=== PATIENT | female | born 1970 | race Two or more races ===

== ENCOUNTER 2018-03-02 11:32 | Inpatient (IN) | payer MEDICAID ==
[~2018-03-02] VITALS: Ht 157.5 cm; Wt 51.3 kg
[~2018-03-02 11:32] MED LIST: CIPRO500 MG PO; NKM; NORCO 5-325 TA1 EACH ORAL
[2018-03-02] MEDS ORDERED: POLYETHYLENE GL17 GM ORAL (11:53)
[2018-03-02 12:00] VITALS: BP 106/57
[2018-03-02] MEDS ORDERED: Metoclopramide 10mg/2ml Inj IVP ONE (12:15)
[2018-03-02] MEDS ORDERED: DiphenhydrAMINE 50mg/ml Inj IVP ONE (12:15)
[2018-03-02] MEDS ORDERED: Isovue-300 100ml vial INJ PRN (12:15)
[2018-03-02 12:46] LABS: BASOPHILS % (AUTO) 1.1 % (0.0-2.0); HEMATOCRIT 41.5 % (37.0-47.0); HEMOGLOBIN 14.4 G/DL (12.0-16.0); LYMPHOCYTES % (AUTO) 7.8 % (20.0-45.0); MEAN CORPUSCULAR VOLUME 95 FL (80-99); MONOCYTES % (AUTO) 10.3 % (1.0-10.0); NEUTROPHILS % (AUTO) 80.7 % (45.0-75.0); PLATELET COUNT 242 K/UL (150-450); RED BLOOD COUNT 4.36 M/UL (4.20-5.40); RED CELL DISTRIBUTION WIDTH 10.6 % (11.6-14.8); WHITE BLOOD COUNT 16.6 K/UL (4.8-10.8)
[2018-03-02 12:55] LABS: INR 1.1 (0.9-1.1)
[2018-03-02 12:57] LABS: ANION GAP 10 mmol/L (5-15); BLOOD UREA NITROGEN 7 mg/dL (7-18); CARBON DIOXIDE 27 MMOL/L (21-32); CHLORIDE 89 MMOL/L (98-107); CREATININE 0.8 MG/DL (0.55-1.30); POTASSIUM 3.1 MMOL/L (3.5-5.1); SODIUM 126 MMOL/L (136-145)
[2018-03-02 13:01] LABS: ALANINE AMINOTRANSFERASE 107 U/L (12-78); ALBUMIN/GLOBULIN RATIO 0.5 (1.0-2.7); ALKALINE PHOSPHATASE 168 U/L (46-116); ASPARTATE AMINO TRANSFERASE 94 U/L (15-37); BILIRUBIN,TOTAL 0.5 MG/DL (0.2-1.0)
[2018-03-02 13:09] LABS: APPEARANCE,URINE SLIGHTLY CLOUDY; BILIRUBIN, URINE NEGATIVE (NEGATIVE); GLUCOSE, URINE (UA) 3+ (NEGATIVE); KETONES,URINE 1+ (NEGATIVE); LEUKOCYTE ESTERASE ,URINE 3+ (NEGATIVE); NITRITE,URINE NEGATIVE (NEGATIVE); PH,URINE 7 (4.5-8.0); PROTEIN,URINE 2+ (NEGATIVE); UROBILINOGEN,URINE 1 MG/DL (0.0-1.0)
[2018-03-02 13:14] LABS: COLOR,URINE YELLOW
[2018-03-02 13:26] LABS: AMMONIA < 10 umol/L (11-32)
[2018-03-02] MEDS ORDERED: Omnipaque-300 100ml vial INJ ONE (14:04)
--- NOTE | 2018-03-02 14:05 | Diagnostic Imaging Report ---
Indication: Cough Technique: One view of the chest Comparison: none Findings: Lungs and pleural spaces are clear. The heart size is normal. Impression: Negative
--- NOTE | 2018-03-02 14:57 | Diagnostic Imaging Report ---
Clinical Indication: Abdominal pain Technique: Patient given oral contrast. IV administration nonionic contrast. Venous phase spiral acquisition obtained through the abdomen and pelvis. Multiplanar reconstructions were generated. Total dose length product 541.13 mGycm. CTDIvol(s) 11.63 mGy. Dose reduction achieved using automated exposure control Comparison: none Findings: There is a complex left adnexal region mass presumably involving the left ovary, which measures 6.8 x 5 cm. It demonstrates multiple cystic spaces, some which appear to be interconnected others which other discrete. It also contains a 7 mm calcification. Most of this appears to be hyperenhancing and there is no definite torsion of the ovarian vascular pedicle. There is considerable infiltration of the surrounding pelvic fat. The right ovary is unremarkable. The uterus contains an intrauterine device. There is good quality opacification of the GI tract. Contrast is seen throughout the entirety of the small bowel, indicating absence of obstructive pathology. The appendix is normal. It is best appreciated on the coronal reconstructed images. There is wall thickening of the cecum and ascending colon. There is equivocal mild wall thickening of the sigmoid colon, but this is probably just an artifact of under distention. No free or loculated intraperitoneal gas or fluid. No small bowel wall thickening. The distal esophagus, stomach, duodenum are unremarkable. The liver is enlarged and diffusely hypoattenuating. No focal abnormality demonstrated. The gallbladder, bile ducts, pancreas, spleen, adrenals are unremarkable. The right kidney demonstrates a small cortical scar. Left kidney demonstrates one or more subcentimeter low-attenuation lesions, too small to characterize. The bladder is equivocally somewhat thick walled but this is probably an artifact of under distention. The included lung bases demonstrate a 3 mm nodule on the right, image 8 of series 7. The bones demonstrate bilateral L5 spondylolysis, and grade 1-2 L5 on S1 spondylolisthesis. Impression: 6.8 x 5 cm complex left adnexal mass, presumably ovarian in origin. Given the evidence of surrounding inflammatory change, findings suspicious for tubo-ovarian abscess. There is also a calcification which is tooth-like, may indicate a concomitant dermoid. Findings could also represent ovarian neoplasm or, less likely, ovarian torsion. Intrauterine device in place Wall thickening of the cecum and ascending colon, consistent with colitis. There is also questionable wall thickening of the sigmoid, but this is probably just an artifact of under distention Apparent wall thickening of the bladder, most likely an artifact of under distention but cystitis also possible Enlarged fatty liver 3 mm right lung base nodule. No further follow-up necessary if there are no risk factors for lung carcinoma. There are risk factors, then follow-up CT in 6 6-12 months is recommended Bilateral L5 spondylolysis and grade 1-2 L5 on S1 spondylolisthesis Incidental finding left renal subcentimeter low-attenuation lesion, too small to characterize, most likely benign simple cysts. No further follow-up necessary Findings discussed by phone with Dr. Monk in the emergency room at the time of interpretation The CT scanner at [facility] is accredited by the [employer] and the scans are performed using protocols designed to limit radiation exposure to as low as reasonably achievable to attain images of sufficient resolution adequate for diagnostic evaluation.
[2018-03-02] MEDS ORDERED: Cefepime HCl 1 GM in D5W 55 ML IVPB ONE (15:00)
--- NOTE | 2018-03-02 15:08 | Emergency Room Report ---
History of Present Illness General Chief Complaint: Abdominal Pain Source: Patient Present Illness HPI Patient presents with one week of worsening constant left lower quadrant pain. She has a complicated history of cirrhosis, ovarian cysts and was extensively worked up several months ago at [facility] with ultrasounds and CT scans ( ). She's felt feverish. She's also had some vomiting with some bile. She's moved her bowels and had constipation. Last time was last night. The pain is severe and constant and doesn't radiate. Pain rated 9/10. She still does drink alcohol and smoke cigarettes. H/O cirrhosis H/O ovarian cysts post some surgical procedure 15 years ago. No URI sy, cough, chest pain, dizziness, confusion, rashes, joint pain. No cough, dysuria, back pain, headache, confusion, rashes, depression, diabetes , bleeding problems. Allergies: Coded Allergies: No Known Allergies (Unverified , 08/08/14) Patient History Past Medical History: see triage record Past Surgical History: other - ovarian cyst operation Social History: Reports: smoking, alcohol use Social History Narrative with daughter Reviewed Nursing Documentation: PMH: Agreed; PSxH: Agreed Nursing Documentation-PM Past Medical History: No History, Except For Hx Gastrointestinal Problems: Yes - constipation Review of Systems All Other Systems: negative except mentioned in HPI Physical Exam Vital Signs Date Time Temp Pulse Resp B/P (MAP) Pulse Ox O2 Delivery O2 Flow Rate FiO2 03/02/18 11:46 98.1 98 18 92/54 99 Room Air Sp02 EP Interpretation: reviewed, normal General Appearance: well appearing, no apparent distress, GCS 15 Head: normocephalic Eyes: bilateral eye PERRL, bilateral eye EOMI, bilateral eye scleral icterus ENT: moist mucus membranes, other - delong coating tongue Neck: supple Respiratory: lungs clear, normal breath sounds Cardiovascular #1: regular rate, rhythm Cardiovascular #2: 2+ radial (R) Gastrointestinal: soft, no mass, no rebound, guarding, tenderness, other - possible ascites, protruberant Genitourinary: no CVA tenderness Musculoskeletal: back normal, gait/station normal, normal range of motion Neurologic: alert, oriented x3, motor strength/tone normal, DTRs symmetric, sensory intact, cerebellar normal, normal gait, speech normal, other - no asterixis Psychiatric: mood/affect normal Skin: warm/dry, other - sallo Medical Decision Making Diagnostic Impression: Primary Impression: Tubo-ovarian abscess Additional Impressions: Ovarian mass, left Cirrhosis Qualified Codes: K70.30 - Alcoholic cirrhosis of liver without ascites Hyponatremia Elevated LFTs UTI (urinary tract infection) Qualified Codes: N39.0 - Urinary tract infection, site not specified ER Course Patient presents with 1 week of LLQ pain. DDX: diverticulitis, ascites/SBP, UTI , other abdominal pathology. No diarrhea so doubt gastroenteritis. Evaluation with EKG, CXR CT abd/pelvis and labs. Treatment with IV hydration, Reglan and Benadryl for pain. EKG some R strain. Labs with leukocytosis, normal H/H and platelets. CMP with low sodium, elevated LFTs. Normal coags. Pyuria. CT with possible TOA versus ovarian mass. Cefepime and Flagyl begun. Pain improved. Admit med. Will need Senior Housekeeper consultation. Laboratory Tests Test 03/02/18 12:36 03/02/18 12:55 White Blood Count 16.6 K/UL (4.8-10.8) H Red Blood Count 4.36 M/UL (4.20-5.40) Hemoglobin 14.4 G/DL (12.0-16.0) Hematocrit 41.5 % (37.0-47.0) Mean Corpuscular Volume 95 FL (80-99) Mean Corpuscular Hemoglobin 32.9 PG (27.0-31.0) H Mean Corpuscular Hemoglobin Concent 34.6 G/DL (32.0-36.0) Red Cell Distribution Width 10.6 % (11.6-14.8) L Platelet Count 242 K/UL (150-450) Mean Platelet Volume 6.0 FL (6.5-10.1) L Neutrophils (%) (Auto) 80.7 % (45.0-75.0) H Lymphocytes (%) (Auto) 7.8 % (20.0-45.0) L Monocytes (%) (Auto) 10.3 % (1.0-10.0) H Eosinophils (%) (Auto) 0.0 % (0.0-3.0) Basophils (%) (Auto) 1.1 % (0.0-2.0) Prothrombin Time 11.2 SEC (9.30-11.50) Prothrombin Time INR 1.1 (0.9-1.1) PTT 35 SEC (23-33) H Sodium Level 126 MMOL/L (136-145) L Potassium Level 3.1 MMOL/L (3.5-5.1) L Chloride Level 89 MMOL/L (98-107) L Carbon Dioxide Level 27 MMOL/L (21-32) Anion Gap 10 mmol/L (5-15) Blood Urea Nitrogen 7 mg/dL (7-18) Creatinine 0.8 MG/DL (0.55-1.30) Estimate Glomerular Filtration Rate > 60 mL/min (>60) Glucose Level 174 MG/DL (74-106) H Calcium Level 9.0 MG/DL (8.5-10.1) Magnesium Level 1.7 MG/DL (1.8-2.4) L Total Bilirubin 0.5 MG/DL (0.2-1.0) Aspartate Amino Transferase (AST) 94 U/L (15-37) H Alanine Aminotransferase (ALT) 107 U/L (12-78) H Alkaline Phosphatase 168 U/L (46-116) H Ammonia < 10 umol/L (11-32) L Total Protein 8.9 G/DL (6.4-8.2) H Albumin 3.0 G/DL (3.4-5.0) L Globulin 5.9 g/dL Albumin/Globulin Ratio 0.5 (1.0-2.7) L Lipase 75 U/L (73-393) Serum Alcohol < 3 mg/dL Urine Color Yellow Urine Appearance Slightly cloudy Urine pH 7 (4.5-8.0) Urine Specific [place] 1.005 (1.005-1.035) Urine Protein 2+ (NEGATIVE) H Urine Glucose (UA) 3+ (NEGATIVE) H Urine Ketones 1+ (NEGATIVE) H Urine Blood 3+ (NEGATIVE) H Urine Nitrite Negative (NEGATIVE) Urine Bilirubin Negative (NEGATIVE) Urine Urobilinogen 1 MG/DL (0.0-1.0) H Urine Leukocyte Esterase 3+ (NEGATIVE) H Urine RBC 10-15 /HPF (0 - 2) H Urine WBC 20-30 /HPF (0 - 2) H Urine Squamous Epithelial Cells Many /LPF (NONE/OCC) H Urine Bacteria Moderate /HPF (NONE) H Urine Opiates Screen Negative (NEGATIVE) Urine Barbiturates Screen Negative (NEGATIVE) Phencyclidine (PCP) Screen Negative (NEGATIVE) Urine Amphetamines Screen Negative (NEGATIVE) Urine Benzodiazepines Screen Negative (NEGATIVE) Urine Cocaine Screen Negative (NEGATIVE) Urine Marijuana (THC) Screen Negative (NEGATIVE) EKG Diagnostic Results Rate: normal Rhythm: NSR ST Segments: other - pulmonary disease Rhythm Strip Diag. Results EP Interpretation: yes Rhythm: NSR, no PVC's, no ectopy Chest X-Ray Diagnostic Results Chest X-Ray Diagnostic Results : Chest X-Ray Ordered: Yes # of Views/Limited/Complete: 1 View Indication: Other EP Interpretation: Yes Interpretation: no consolidation, no effusion, no pneumothorax Impression: No acute disease Electronically Signed by: Varun Monk MD CT/MRI/US Diagnostic Results CT/MRI/US Diagnostic Results : Imaging Test Ordered: abd/pelvis Impression Impression: 6.8 x 5 cm complex left adnexal mass, presumably ovarian in origin. Given the evidence of surrounding inflammatory change, findings suspicious for tubo-ovarian abscess. There is also a calcification which is tooth-like, may indicate a concomitant dermoid. Findings could also represent ovarian neoplasm or, less likely, ovarian torsion. Intrauterine device in place Wall thickening of the cecum and ascending colon, consistent with colitis. There is also questionable wall thickening of the sigmoid, but this is probably just an artifact of under distention Apparent wall thickening of the bladder, most likely an artifact of under distention but cystitis also possible Enlarged fatty liver 3 mm right lung base nodule. No further follow-up necessary if there are no risk factors for lung carcinoma. There are risk factors, then follow-up CT in 6 6-12 months is recommended Bilateral L5 spondylolysis and grade 1-2 L5 on S1 spondylolisthesis Incidental finding left renal subcentimeter low-attenuation lesion, too small to characterize, most likely benign simple cysts. No further follow-up necessary Status: improved Disposition: ADMITTED INPATIENT Condition: Serious Referrals: NON PHYSICIAN (PCP) Varun Monk MD Mar 02, 2018 15:08
[2018-03-02] MEDS ORDERED: NKM (17:29)
--- NOTE | 2018-03-02 18:33 | Infectious Diseases Prog Note ---
Assessment/Plan Problems: (1) Tubo-ovarian abscess Assessment & Plan: confirmed on CT ABD , will screen for chlamydia and gonorrhea , and syphilis, and HIV, start cefoxitine and doxycycline empirically , recommend FLOW WORKER eval in am (2) UTI (urinary tract infection) Assessment & Plan: already on cefoxitin pending culture (3) Abdominal pain Assessment & Plan: due to the above , continue pain management (4) Fever Assessment & Plan: due to the above, continue tylenol and wide spectrum antibiotics (5) Elevated LFTs Assessment & Plan: will order hepatitis panel Subjective Allergies: Coded Allergies: No Known Allergies (Unverified , 08/08/14) Objective Vital Signs Last 24 Hour Vital Signs Date Time Temp Pulse Resp B/P (MAP) Pulse Ox O2 Delivery O2 Flow Rate FiO2 03/02/18 12:00 98.0 89 17 106/57 99 Room Air 03/02/18 12:00 89 17 Room Air 03/02/18 11:46 98.1 98 18 92/54 99 Room Air Height (Feet): 5 Height (Inches): 2.00 Weight (Pounds): 116 Laboratory Tests Test 03/02/18 12:36 03/02/18 12:55 White Blood Count 16.6 K/UL (4.8-10.8) H Red Blood Count 4.36 M/UL (4.20-5.40) Hemoglobin 14.4 G/DL (12.0-16.0) Hematocrit 41.5 % (37.0-47.0) Mean Corpuscular Volume 95 FL (80-99) Mean Corpuscular Hemoglobin 32.9 PG (27.0-31.0) H Mean Corpuscular Hemoglobin Concent 34.6 G/DL (32.0-36.0) Red Cell Distribution Width 10.6 % (11.6-14.8) L Platelet Count 242 K/UL (150-450) Mean Platelet Volume 6.0 FL (6.5-10.1) L Neutrophils (%) (Auto) 80.7 % (45.0-75.0) H Lymphocytes (%) (Auto) 7.8 % (20.0-45.0) L Monocytes (%) (Auto) 10.3 % (1.0-10.0) H Eosinophils (%) (Auto) 0.0 % (0.0-3.0) Basophils (%) (Auto) 1.1 % (0.0-2.0) Prothrombin Time 11.2 SEC (9.30-11.50) Prothromb Time International Ratio 1.1 (0.9-1.1) Activated Partial Thromboplast Time 35 SEC (23-33) H Sodium Level 126 MMOL/L (136-145) L Potassium Level 3.1 MMOL/L (3.5-5.1) L Chloride Level 89 MMOL/L (98-107) L Carbon Dioxide Level 27 MMOL/L (21-32) Anion Gap 10 mmol/L (5-15) Blood Urea Nitrogen 7 mg/dL (7-18) Creatinine 0.8 MG/DL (0.55-1.30) Estimat Glomerular Filtration Rate > 60 mL/min (>60) Glucose Level 174 MG/DL (74-106) H Calcium Level 9.0 MG/DL (8.5-10.1) Magnesium Level 1.7 MG/DL (1.8-2.4) L Total Bilirubin 0.5 MG/DL (0.2-1.0) Aspartate Amino Transf (AST/SGOT) 94 U/L (15-37) H Alanine Aminotransferase (ALT/SGPT) 107 U/L (12-78) H Alkaline Phosphatase 168 U/L (46-116) H Ammonia < 10 umol/L (11-32) L Total Protein 8.9 G/DL (6.4-8.2) H Albumin 3.0 G/DL (3.4-5.0) L Globulin 5.9 g/dL Albumin/Globulin Ratio 0.5 (1.0-2.7) L Lipase 75 U/L (73-393) Serum Alcohol < 3 mg/dL Urine Color Yellow Urine Appearance Slightly cloudy Urine pH 7 (4.5-8.0) Urine Specific [place] 1.005 (1.005-1.035) Urine Protein 2+ (NEGATIVE) H Urine Glucose (UA) 3+ (NEGATIVE) H Urine Ketones 1+ (NEGATIVE) H Urine Blood 3+ (NEGATIVE) H Urine Nitrite Negative (NEGATIVE) Urine Bilirubin Negative (NEGATIVE) Urine Urobilinogen 1 MG/DL (0.0-1.0) H Urine Leukocyte Esterase 3+ (NEGATIVE) H Urine RBC 10-15 /HPF (0 - 2) H Urine WBC 20-30 /HPF (0 - 2) H Urine Squamous Epithelial Cells Many /LPF (NONE/OCC) H Urine Bacteria Moderate /HPF (NONE) H Urine Opiates Screen Negative (NEGATIVE) Urine Barbiturates Screen Negative (NEGATIVE) Phencyclidine (PCP) Screen Negative (NEGATIVE) Urine Amphetamines Screen Negative (NEGATIVE) Urine Benzodiazepines Screen Negative (NEGATIVE) Urine Cocaine Screen Negative (NEGATIVE) Urine Marijuana (THC) Screen Negative (NEGATIVE) Current Medications Medications (Trade) Dose Ordered Sig/Navid Route PRN Reason Start Time Stop Time Status Last Admin Dose Admin Barium Sulfate (Readi-Cat 2) 450 ml NOW PRN ORAL Radiology Procedure 03/02/18 12:15 03/04/18 12:12 Cefoxitin Sodium 2 gm/Dextrose 110 ml @ 220 mls/hr Q6HR IVPB 03/02/18 18:30 03/09/18 18:29 UNV Doxycycline Hyclate 100 mg/ Dextrose 110 ml @ 110 mls/hr Q12HR IVPB 03/02/18 21:00 03/09/18 20:59 UNV Iopamidol (Isovue-300 100ml) 100 ml NOW PRN INJ Radiology Procedure 03/02/18 12:15 Benita Talamantes M.D. Mar 02, 2018 18:33
[2018-03-02] MEDS ORDERED: chlordiazePOXIDE 25mg Cap ORAL PRN (18:45)
[2018-03-02] MEDS: Thiamine 100mg tab ORAL SCH (20:07)
[2018-03-02] MEDS: cefOXitin Sod 2 GM in D5W 110 ML IVPB SCH (20:09)
[2018-03-02] MEDS: Enoxaparin 40mg Inj SUBQ SCH (20:12)
[2018-03-02] MEDS: Doxycycline Hyclate 100 MG in D5W 110 ML IV SCH (21:11)
--- NOTE | 2018-03-02 21:15 | History and Physical Report ---
DATE OF ADMISSION: 03/02/2018 REASON FOR ADMISSION: 1. Abdominal pain. 2. Tubo-ovarian abscess. HISTORY OF PRESENT ILLNESS: The patient is a 47-year-old female who presented to emergency room for further evaluation and care of left lower quadrant pain. The patient says that the pain started back in November of this year and the patient was seen at [facility] and told she had a mass. She now returns here for further evaluation and care. Noted to have a left most likely tubo-ovarian abscess. She says she drinks approximately 5 to 7 drinks every day. When she does not drink, she says she does have withdrawal tremors. However, she has not had any seizures or visual hallucinations of formication. She denies any current nausea, vomiting, or diarrhea. Says abdominal pain is chronic in nature in left lower quadrant that steadily worsened over the past week. ALLERGIES: No known drug allergies. PAST MEDICAL HISTORY: 1. Cirrhosis. 2. Alcohol dependency. 3. Ovarian mass. SOCIAL HISTORY: Positive for tobacco and alcohol use. No illicit drug use. FAMILY HISTORY: Noncontributory. REVIEW OF SYSTEMS: NEUROLOGIC: The patient denies headache, change in vision, syncope, or presyncopal episodes. CARDIOVASCULAR: No current chest pain, palpitations, angina. PULMONARY: No difficulty breathing, productive cough, sputum. GASTROINTESTINAL/GENITOURINARY: The patient is complaining of left lower quadrant abdominal pain. MUSCULOSKELETAL: The patient feeling tired and fatigue. LABORATORY AND DIAGNOSTIC DATA: Labs dated March 02, 2018, sodium 126, potassium 3.1, creatinine 0.8, glucose 174. AST, ALT of 94 and 107 respectively. Ammonia less than 10. Albumin 3. White cell count 16.6, hemoglobin 14.4, and platelet count 242. PHYSICAL EXAMINATION: VITAL SIGNS: Blood pressure 106/57, respiratory rate 17, pulse 87, temperature 98, 99% oxygen saturation on room air. GENERAL: The patient is awake, alert, not otherwise in distress. HEENT: Extraocular muscles intact. No lymphadenopathy. Oropharyngeal mucosa is clear and dry. CARDIOVASCULAR: S1 and S2. No rubs or gallops. PULMONARY: Clear to auscultation bilaterally. No rales, rhonchi or wheezes. ABDOMINAL: Nondistended and nontender throughout 3 quadrants; however, left lower quadrant tender. Fair bowel sounds. SKIN: No edema with fair pedal pulses. SKIN: No evident rashes. No icteric sclerae. ASSESSMENT AND PLAN: 1. Hyponatremia. At this time is most likely secondary to poor oral solute intake due to heavy alcohol consumption. At this time, we will initiate the patient on good nutrition and isotonic solution of normal saline with 20 of potassium KCl. 2. Hypokalemia. Most likely secondary to poor oral intake and heavy alcohol consumption. We will replace potassium along with checking magnesium and phosphorus to avoid refeeding syndrome. 3. Abdominal pain with noted tubo-ovarian abscess. Antibiotics have been initiated. ORDER EXPEDITER has been consulted for further evaluation and management. 4. Alcohol dependency. Librium to avoid any withdrawals along with thiamine and folate to avoid Wernicke-Korsakoff syndrome. 5. DVT prophylaxis with Lovenox. Abimael Sims MD DR: Og JOB#: [id number] CC:
[2018-03-02] MEDS: NS w/KCl 20mEq 1,000 ML IV SCH (23:45)
[2018-03-03] VITALS: BP 113/73
[2018-03-03] MEDS: cefOXitin Sod 2 GM in D5W 110 ML IVPB SCH ×5 (00:55→23:56)
[2018-03-03 04:00] VITALS: BP 100/65
[2018-03-03 06:29] LABS: BASOPHILS % (AUTO) 1.3 % (0.0-2.0); EOSINOPHILS % (AUTO) 0.2 % (0.0-3.0); HEMATOCRIT 37.8 % (37.0-47.0); HEMOGLOBIN 13.2 G/DL (12.0-16.0); LYMPHOCYTES % (AUTO) 8.9 % (20.0-45.0); MEAN CORPUSCULAR VOLUME 95 FL (80-99); MONOCYTES % (AUTO) 13.6 % (1.0-10.0); NEUTROPHILS % (AUTO) 76.1 % (45.0-75.0); PLATELET COUNT 251 K/UL (150-450); RED BLOOD COUNT 3.99 M/UL (4.20-5.40); RED CELL DISTRIBUTION WIDTH 10.5 % (11.6-14.8); WHITE BLOOD COUNT 14.5 K/UL (4.8-10.8)
[2018-03-03 06:45] LABS: ANION GAP 10 mmol/L (5-15); BLOOD UREA NITROGEN 8 mg/dL (7-18); CALCIUM 9.2 MG/DL (8.5-10.1); CARBON DIOXIDE 26 MMOL/L (21-32); CHLORIDE 98 MMOL/L (98-107); CREATININE 0.6 MG/DL (0.55-1.30); PHOSPHORUS 2.9 MG/DL (2.5-4.9); POTASSIUM 3.4 MMOL/L (3.5-5.1); SODIUM 134 MMOL/L (136-145)
[2018-03-03] MEDS: Thiamine 100mg tab ORAL SCH (08:09)
[2018-03-03 08:29] VITALS: BP 114/65
[2018-03-03] MEDS: Doxycycline Hyclate 100 MG in D5W 110 ML IV SCH ×2 (08:56→20:29)
--- NOTE | 2018-03-03 09:45 | Nephrology Progress Note ---
Assessment/Plan Assessment/Plan A/P 1) LLQ pain- tubo-ovarian abscess. Antibiotics have been initiated. FAMILY LAWYER has been consulted - Abx per ID 2) DVT prophylaxsis- with lovenox 3) Dehydration- IVFs 4) Hyponatremia- improved with NS 5) Hypokalemia- replace Subjective Date patient seen: Mar 03, 2018 Time patient seen: 09:42 ROS Limited/Unobtainable: No Gastrointestinal/Abdominal: Reports: abdominal pain Allergies: Coded Allergies: No Known Allergies (Unverified , 08/08/14) Subjective Patient still having LLQ pain Objective Last 24 Hour Vital Signs Date Time Temp Pulse Resp B/P (MAP) Pulse Ox O2 Delivery O2 Flow Rate FiO2 03/03/18 09:00 Room Air 03/03/18 08:29 100.2 86 16 114/65 (81) 100 03/03/18 04:00 99.4 95 19 100/65 (77) 97 03/03/18 00:00 98.9 83 18 113/73 (86) 100 03/02/18 20:26 Room Air 03/02/18 19:01 97.5 80 20 125/85 100 Room Air 03/02/18 12:00 98.0 89 17 106/57 99 Room Air 03/02/18 12:00 89 17 Room Air 03/02/18 11:46 98.1 98 18 92/54 99 Room Air Intake and Output 03/02/18 03/03/18 18:59 06:59 Intake Total 55 ml 1005 ml Balance 55 ml 1005 ml Intake Oral 200 ml IV Total 55 ml 805 ml # Voids 1 1 Laboratory Tests 03/02/18 12:30: HIV (1&2) Antibody Rapid Negative 03/02/18 12:36: White Blood Count 16.6H, Red Blood Count 4.36, Hemoglobin 14.4, Hematocrit 41.5 , Mean Corpuscular Volume 95, Mean Corpuscular Hemoglobin 32.9H, Mean Corpuscular Hemoglobin Concent 34.6, Red Cell Distribution Width 10.6L, Platelet Count 242, Mean Platelet Volume 6.0L, Neutrophils (%) (Auto) 80.7H, Lymphocytes (%) (Auto) 7.8L, Monocytes (%) (Auto) 10.3H, Eosinophils (%) (Auto) 0.0, Basophils (%) (Auto) 1.1, Prothrombin Time 11.2, Prothromb Time International Ratio 1.1, Activated Partial Thromboplast Time 35H, Sodium Level 126L, Potassium Level 3.1L, Chloride Level 89L, Carbon Dioxide Level 27, Anion Gap 10, Blood Urea Nitrogen 7, Creatinine 0.8, Estimat Glomerular Filtration Rate > 60, Glucose Level 174H, Calcium Level 9.0, Magnesium Level 1.7L, Total Bilirubin 0.5, Aspartate Amino Transf (AST/SGOT) 94H, Alanine Aminotransferase ( ALT/SGPT) 107H, Alkaline Phosphatase 168H, Ammonia < 10L, Total Protein 8.9H, Albumin 3.0L, Globulin 5.9, Albumin/Globulin Ratio 0.5L, Lipase 75, Serum Alcohol < 3 03/02/18 12:55: Urine Color Yellow, Urine Appearance Slightly cloudy, Urine pH 7, Urine Specific [place] 1.005, Urine Protein 2+H, Urine Glucose (UA) 3+H, Urine Ketones 1+H, Urine Blood 3+H, Urine Nitrite Negative, Urine Bilirubin Negative, Urine Urobilinogen 1H, Urine Leukocyte Esterase 3+H, Urine RBC 10-15H, Urine WBC 20-30H, Urine Squamous Epithelial Cells ManyH, Urine Bacteria ModerateH, Urine Opiates Screen Negative, Urine Barbiturates Screen Negative, Phencyclidine (PCP) Screen Negative, Urine Amphetamines Screen Negative, Urine Benzodiazepines Screen Negative, Urine Cocaine Screen Negative, Urine Marijuana (THC) Screen Negative 03/02/18 18:55: Rapid Plasma Reagin [Pending] 03/02/18 20:40: Chlamydia trachomatis RNA [Pending] 03/03/18 05:45: White Blood Count 14.5H, Red Blood Count 3.99L, Hemoglobin 13.2, Hematocrit 37.8 , Mean Corpuscular Volume 95, Mean Corpuscular Hemoglobin 33.0H, Mean Corpuscular Hemoglobin Concent 34.8, Red Cell Distribution Width 10.5L, Platelet Count 251, Mean Platelet Volume 5.7L, Neutrophils (%) (Auto) 76.1H, Lymphocytes (%) (Auto) 8.9L, Monocytes (%) (Auto) 13.6H, Eosinophils (%) (Auto) 0.2, Basophils (%) (Auto) 1.3, Sodium Level 134L, Potassium Level 3.4L, Chloride Level 98, Carbon Dioxide Level 26, Anion Gap 10, Blood Urea Nitrogen 8 , Creatinine 0.6, Estimat Glomerular Filtration Rate > 60, Glucose Level 110H, Calcium Level 9.2, Phosphorus Level 2.9, Magnesium Level 2.0 Height (Feet): 5 Height (Inches): 2.00 Weight (Pounds): 113 General Appearance: no apparent distress, alert EENT: normal ENT inspection Neck: normal alignment Cardiovascular: normal rate, regular rhythm Respiratory/Chest: normal breath sounds Abdomen: non tender, soft Edema: no edema noted Arm (L), no edema noted Arm (R), no edema noted Leg (L), no edema noted Leg (R), no edema noted Pedal (L), no edema noted Pedal (R), no edema noted Generalized Abimael Sims MD Mar 03, 2018 09:45
[2018-03-03] MEDS: NS w/KCl 20mEq 1,000 ML IV SCH ×2 (09:49→22:39)
[2018-03-03 12:19] VITALS: BP 161/71
--- NOTE | 2018-03-03 15:30 | Infectious Diseases Prog Note ---
Assessment/Plan Problems: (1) Tubo-ovarian abscess Assessment & Plan: screening for chlamydia and gonorrhea , and syphilis is pending, screening for HIV is negative . continue cefoxitine and doxycycline empirically, recommend ANGLE SHEARER eval . will order CA 125 (2) UTI (urinary tract infection) Assessment & Plan: already on cefoxitin pending culture (3) Abdominal pain Assessment & Plan: due to the above , continue pain management (4) Fever Assessment & Plan: due to the above, continue tylenol and wide spectrum antibiotics (5) Elevated LFTs Assessment & Plan: hepatitis panel is pending , monitor LFT closely Subjective Constitutional: Reports: no symptoms HEENT: Reports: no symptoms Respiratory: Reports: no symptoms Breasts: Reports: no symptoms Cardiovascular: Reports: no symptoms Gastrointestinal/Abdominal: Reports: bloating, other - LLQ abdominal pain Genitourinary: Reports: no symptoms Neurologic: Reports: no symptoms Psychiatric: Reports: no symptoms Skin: Reports: no symptoms Endocrine: Reports: no symptoms Hematologic: Reports: no symptoms Musculoskeletal: Reports: no symptoms Allergies: Coded Allergies: No Known Allergies (Unverified , 08/08/14) Objective Vital Signs Last 24 Hour Vital Signs Date Time Temp Pulse Resp B/P (MAP) Pulse Ox O2 Delivery O2 Flow Rate FiO2 03/03/18 12:19 97.3 78 16 161/71 (101) 100 03/03/18 09:00 Room Air 03/03/18 08:29 100.2 86 16 114/65 (81) 100 03/03/18 04:00 99.4 95 19 100/65 (77) 97 03/03/18 00:00 98.9 83 18 113/73 (86) 100 03/02/18 20:26 Room Air 03/02/18 19:01 97.5 80 20 125/85 100 Room Air Height (Feet): 5 Height (Inches): 2.00 Weight (Pounds): 113 General Appearance: WD/WN, no acute distress HEENT: normocephalic, atraumatic, anicteric, mucous membranes moist, PERRL, EOMI, pharynx normal, supple, no JVD Respiratory/Chest: chest wall non-tender, lungs clear, normal breath sounds, no respiratory distress, no accessory muscle use Cardiovascular: normal peripheral pulses, normal rate, regular rhythm, no gallop/murmur, no JVD Abdomen: normal bowel sounds, no organomegaly, no mass, no scars, distended, tender Extremities: no cyanosis, no clubbing Skin: no rash, no lesions, no ulcers Neurologic/Psychiatric: alert, oriented x 3, responsive Lymphatic: no neck adenopathy, no groin adenopathy Musculoskeletal: normal muscle bulk, no effusion Microbiology Date/Time Source Procedure Growth Status 03/02/18 12:55 Urine,Clean Catch Urine Culture - Preliminary Resulted Laboratory Tests Test 03/02/18 18:55 03/02/18 20:40 03/03/18 05:45 Rapid Plasma Reagin Pending Chlamydia trachomatis RNA Pending White Blood Count 14.5 K/UL (4.8-10.8) H Red Blood Count 3.99 M/UL (4.20-5.40) L Hemoglobin 13.2 G/DL (12.0-16.0) Hematocrit 37.8 % (37.0-47.0) Mean Corpuscular Volume 95 FL (80-99) Mean Corpuscular Hemoglobin 33.0 PG (27.0-31.0) H Mean Corpuscular Hemoglobin Concent 34.8 G/DL (32.0-36.0) Red Cell Distribution Width 10.5 % (11.6-14.8) L Platelet Count 251 K/UL (150-450) Mean Platelet Volume 5.7 FL (6.5-10.1) L Neutrophils (%) (Auto) 76.1 % (45.0-75.0) H Lymphocytes (%) (Auto) 8.9 % (20.0-45.0) L Monocytes (%) (Auto) 13.6 % (1.0-10.0) H Eosinophils (%) (Auto) 0.2 % (0.0-3.0) Basophils (%) (Auto) 1.3 % (0.0-2.0) Sodium Level 134 MMOL/L (136-145) L Potassium Level 3.4 MMOL/L (3.5-5.1) L Chloride Level 98 MMOL/L (98-107) Carbon Dioxide Level 26 MMOL/L (21-32) Anion Gap 10 mmol/L (5-15) Blood Urea Nitrogen 8 mg/dL (7-18) Creatinine 0.6 MG/DL (0.55-1.30) Estimat Glomerular Filtration Rate > 60 mL/min (>60) Glucose Level 110 MG/DL (74-106) H Calcium Level 9.2 MG/DL (8.5-10.1) Phosphorus Level 2.9 MG/DL (2.5-4.9) Magnesium Level 2.0 MG/DL (1.8-2.4) Current Medications Medications (Trade) Dose Ordered Sig/Navid Route PRN Reason Start Time Stop Time Status Last Admin Dose Admin Acetaminophen (Tylenol) 650 mg Q4H PRN ORAL Mild Pain (Pain Scale 1-3) 03/02/18 18:45 04/01/18 18:44 03/03/18 05:37 Barium Sulfate (Readi-Cat 2) 450 ml NOW PRN ORAL Radiology Procedure 03/02/18 12:15 03/04/18 12:12 Cefoxitin Sodium 2 gm/Dextrose 110 ml @ 220 mls/hr Q6HR IVPB 03/02/18 19:30 03/09/18 19:29 03/03/18 12:36 Chlordiazepoxide (Librium) 25 mg Q6H PRN ORAL Agitation 03/02/18 18:45 03/09/18 18:44 Dextrose (Dextrose 50%) 25 ml Q30M PRN IV Hypoglycemia 03/02/18 18:45 04/01/18 18:44 Dextrose (Dextrose 50%) 50 ml Q30M PRN IV Hypoglycemia 03/02/18 18:45 04/01/18 18:44 Doxycycline Hyclate 100 mg/ Dextrose 110 ml @ 110 mls/hr Q12HR IV 03/02/18 21:00 03/09/18 20:59 03/03/18 08:56 Enoxaparin Sodium (Lovenox) 40 mg Q24H SUBQ 03/02/18 20:00 04/01/18 19:59 03/02/18 20:12 Famotidine (Pepcid) 40 mg DAILY ORAL 03/03/18 09:00 04/02/18 08:59 03/03/18 08:17 Folic Acid (Folate) 1 mg DAILY ORAL 03/02/18 20:00 04/01/18 19:59 03/03/18 08:09 Iopamidol (Isovue-300 100ml) 100 ml NOW PRN INJ Radiology Procedure 03/02/18 12:15 Lorazepam (Ativan 2mg/ml 1ml) 0.5 mg Q4H PRN IV For Anxiety 03/02/18 18:45 03/09/18 18:44 Ondansetron HCl (Zofran) 4 mg Q6H PRN IVP Nausea & Vomiting 03/02/18 18:45 04/01/18 18:44 Potassium Chloride (K-Dur) 40 meq DAILY ORAL 03/03/18 09:00 04/02/18 08:59 03/03/18 08:17 Sodium Chloride 1,000 ml @ 75 mls/hr [id number] IV 03/02/18 20:00 04/01/18 19:59 03/03/18 09:49 Thiamine HCl (Vitamin B1) 100 mg DAILY ORAL 03/02/18 20:00 04/01/18 19:59 03/03/18 08:09 Benita Talamantes M.D. Mar 03, 2018 15:30
[2018-03-03 16:00] VITALS: BP 124/86
--- NOTE | 2018-03-03 17:44 | Cardiology Report ---
APPROVED REPORT EKG Measurement Heart [id number] Normal sinus rhythm Right atrial enlargement Pulmonary disease pattern Abnormal ECG
[2018-03-03 20:00] VITALS: BP 109/74
[2018-03-03] MEDS: Enoxaparin 40mg Inj SUBQ SCH (20:28)
[2018-03-03] MEDS: LORazepam Inj 2mg/ml 1ml IV PRN (21:00)
--- NOTE | 2018-03-03 21:10 | General Progress Note ---
Assessment/Plan Assessment/Plan Assessment - Alcohol abuse - Likely Edward Parker hepatitis related to tubo-ovarian abscess - Tubo ovarian abscess - Thickening of colon on CT - nonspecific finding, had a negative CT in July Recommendations - Check hepatitis serologies - abx per ID - Thiamine, MVI - watch for withdrawal Thank you Kelley Colin MD Subjective Allergies: Coded Allergies: No Known Allergies (Unverified , 08/08/14) Objective Last 24 Hour Vital Signs Date Time Temp Pulse Resp B/P (MAP) Pulse Ox O2 Delivery O2 Flow Rate FiO2 03/03/18 16:00 98.9 75 20 124/86 (99) 98 03/03/18 12:19 97.3 78 16 161/71 (101) 100 03/03/18 09:00 Room Air 03/03/18 08:29 100.2 86 16 114/65 (81) 100 03/03/18 04:00 99.4 95 19 100/65 (77) 97 03/03/18 00:00 98.9 83 18 113/73 (86) 100 Intake and Output 03/02/18 03/03/18 19:00 07:00 Intake Total 55 ml 1005 ml Balance 55 ml 1005 ml Intake Oral 200 ml IV Total 55 ml 805 ml # Voids 1 1 Laboratory Tests 03/03/18 05:45: White Blood Count 14.5H, Red Blood Count 3.99L, Hemoglobin 13.2, Hematocrit 37.8 , Mean Corpuscular Volume 95, Mean Corpuscular Hemoglobin 33.0H, Mean Corpuscular Hemoglobin Concent 34.8, Red Cell Distribution Width 10.5L, Platelet Count 251, Mean Platelet Volume 5.7L, Neutrophils (%) (Auto) 76.1H, Lymphocytes (%) (Auto) 8.9L, Monocytes (%) (Auto) 13.6H, Eosinophils (%) (Auto) 0.2, Basophils (%) (Auto) 1.3, Sodium Level 134L, Potassium Level 3.4L, Chloride Level 98, Carbon Dioxide Level 26, Anion Gap 10, Blood Urea Nitrogen 8 , Creatinine 0.6, Estimat Glomerular Filtration Rate > 60, Glucose Level 110H, Calcium Level 9.2, Phosphorus Level 2.9, Magnesium Level 2.0, CA 125 Antigen [ Pending] Height (Feet): 5 Height (Inches): 2.00 Weight (Pounds): 113 Kelley Colin MD Mar 03, 2018 21:10
--- NOTE | 2018-03-03 21:30 | Consultation ---
DATE OF CONSULTATION: 03/02/2018 INFECTIOUS DISEASE CONSULTATION CONSULTING PHYSICIAN: Benita Talamantes M.D. REQUESTING PHYSICIAN: Abimael Sims M.D. REASON FOR CONSULTATION: Left tubo-ovarian abscess. Recommendation for antibiotics treatment. HISTORY OF PRESENT ILLNESS: The patient is a 47-year-old female with past medical history of ovarian cyst and constipation, was recently evaluated at [facility] with ultrasound CT scan image of the abdomen and colonoscopy for lower abdominal pain, presented to [facility] with the same chief complaint of left lower quadrant abdominal pain, which she had now for more than a week. The patient felt feverish. She also had some vomiting and vomited some bile. She is normally constipated. She describes her abdominal pain as a dull deep ache, constant, and severe in the left lower quadrant. No radiation to the right side or epigastrium. The patient had CT scan of the abdomen and pelvis in the emergency room for her abdominal pain. In that, the CT scan showed a 6.8 x 5 cm complex left adnexal mass, ovarian in origin, finding suspicious for tubo-ovarian abscess. There is also calcification with tooth-like material indicate concomitant dermoid. Finding could also represent ovarian neoplasm or less likely ovarian torsion with intrauterine device in place. Wall thickening of the cecum and ascending colon consistent with colitis with questionable wall thickening of the sigmoid. So, she was started on cefepime and metronidazole in the emergency room and Infectious Disease consultation was requested for antibiotics treatment of left tubo-ovarian abscess. As of note, the patient is Polish speaker. History was mainly obtained via smoke eater at the bedside. SYSTEMS REVIEW: A 14-point of system reviewed were all negative apart from the one I mentioned above in my History and Physical. PAST MEDICAL HISTORY: Constipation and ovarian cyst. PAST SURGICAL HISTORY: Significant for ovarian cyst removal. MEDICATIONS: The patient received cefepime and metronidazole in the emergency room. For the rest of her medications, please refer to MAR. ALLERGIES: She has no known drug allergy. FAMILY HISTORY: Not contributory. SOCIAL HISTORY: The patient lives at home with family. No recent drugs, tobacco, or alcohol. PHYSICAL EXAMINATION: VITAL SIGNS: Temperature 98, pulse 89, respirations 17, blood pressure 106/57, and saturation 99% on room air. GENERAL: A middle-aged female, lying in bed, awake, alert, oriented x3, Polish speaker, not in acute distress. HEENT: Normocephalic and atraumatic. Pupils are reactive to light equally. Moist oral mucosa. No exudate. NECK: Supple. No lymphadenopathy. CARDIOVASCULAR: Regular rate and rhythm. No murmur or gallop. LUNGS: Clear bilaterally. No wheezing or rhonchi. Normal breathing effort. ABDOMEN: Soft. Tender in the left lower quadrant with rebound. No organomegaly. No ascites. EXTREMITY: No edema or cyanosis. LABORATORY DATA: Labs showed white count of 16.6, hemoglobin of 14.4, and platelet count of 242,000. BUN of 7 and creatinine of 0.8. AST of 94 and ALT of 107. Lipase of 75. Urinalysis showed +3 leukocyte esterase, wbc 20 to 30, and moderate amount of bacteria. MICROBIOLOGY: Urine culture is pending. IMAGING: Chest x-ray on admission was negative. Abdominal CT scan and pelvis showed 6.8 x 5 cm complex left adnexal mass presumably ovarian in origin given the evidence of surrounding inflammatory change, finding suspicious for tubo-ovarian abscess. ASSESSMENT AND RECOMMENDATION: 1. Tubo-ovarian abscess confirmed on CT abdomen. We will screen for chlamydia and gonorrhea and syphilis and human immunodeficiency virus at this point and start cefoxitin with doxycycline empiric coverage. Recommend SUPERVISOR [employer]OR [employer] evaluation in a.m. 2. Urinary tract infection. We will start the patient on cefoxitin already pending culture. 3. Abdominal pain due to the above. Continue pain management. 4. Fever due to the above. Continue Tylenol and wide-spectrum antibiotics. 5. Elevated liver function tests. Suspect due to her infection. We will order hepatitis panel with close monitor of her liver function tests. Thank you for the consult. ID will continue to follow. Benita Talamantes M.D. DR: SONIDO JOB#: [id number] CC:
[2018-03-04] VITALS: BP 127/79
--- NOTE | 2018-03-04 03:00 | Consultation ---
DATE OF CONSULTATION: 03/03/2018 GASTROENTEROLOGY CONSULTATION: CONSULTING PHYSICIAN: Kelley Colin M.D. REFERRING PHYSICIAN: Abimael Sims M.D. CHIEF COMPLAINT: I was asked to see this patient by Dr. Abimael Sims for evaluation of abnormal liver tests. HISTORY OF PRESENT ILLNESS: The patient is a pleasant 47-year-old woman who usually goes to a different hospital for care who comes into the hospital here for a 1-week history of left lower quadrant abdominal pain. She has had previous episodes of abdominal pain and in fact underwent a colonoscopy and possibly an endoscopy in July this year at an outside hospital. She is not aware of any significant findings and she states it was done because of her anemia. She also drinks heavily up to 8 beers a day on a routine basis. She smokes two or three cigarettes a day, but has not been told of having any liver disease. She does have some withdrawal symptoms and has had testing including a colonoscopy was done at [facility]. Her CT scan here, however, showed a left lower quadrant tubo-ovarian abscess, which is being treated. PAST MEDICAL HISTORY: History of nonalcoholic liver disease, although it is not clear whether she does have a history of cirrhosis, history of alcohol abuse, ovarian mass, and history of anemia. FAMILY HISTORY: Noncontributory. SOCIAL HISTORY: The patient drinks and smokes heavily. MEDICATIONS: See the chart list for details. REVIEW OF SYSTEMS: Otherwise negative. PHYSICAL EXAMINATION: GENERAL: Well-developed, well-nourished woman, seen with the family at bedside. HEENT: Normocephalic and atraumatic. Sclerae anicteric. Oropharynx clear. NECK: Supple. CHEST: Clear to auscultation. CARDIOVASCULAR: Regular rate. ABDOMEN: Soft with some left lower quadrant tenderness. EXTREMITIES: Revealed no edema. LABORATORY DATA: CT scan noted. ASSESSMENT: This patient presents with a left lower quadrant tubo-ovarian abscess, which is being treated with antibiotics and this explains her abdominal pain. The finding of the thickening of the colon on the CT is nonspecific and sometimes can be seen with poor distention. In either rate, she has had a colonoscopy earlier this year and likely no new findings. She does have some abnormal liver tests, but the pattern is not consistent with alcoholic hepatitis. Instead, I believe she may have Immc-Vauy-Exsiql hepatitis with her tubo-ovarian abscess, which should resolve once the primary infectious pathology has been treated. I would, however, check hepatitis serologies to be complete. RECOMMENDATIONS: Per above discussion and per orders written in the chart. Thank you for asking me to participate in the care of this patient. I will follow her with you. Kelley Colin M.D. DR: EASTON JOB#: [id number] CC: ALANIS
[2018-03-04 04:00] VITALS: BP 128/82
[2018-03-04] MEDS: cefOXitin Sod 2 GM in D5W 110 ML IVPB SCH ×3 (05:37→18:08)
[2018-03-04 07:44] LABS: ALANINE AMINOTRANSFERASE 67 U/L (12-78); ALBUMIN 2.5 G/DL (3.4-5.0); ALBUMIN/GLOBULIN RATIO 0.5 (1.0-2.7); ALKALINE PHOSPHATASE 127 U/L (46-116); ANION GAP 9 mmol/L (5-15); ASPARTATE AMINO TRANSFERASE 46 U/L (15-37); BILIRUBIN,TOTAL 0.4 MG/DL (0.2-1.0); BLOOD UREA NITROGEN 5 mg/dL (7-18); CALCIUM 9.1 MG/DL (8.5-10.1); CARBON DIOXIDE 24 MMOL/L (21-32); CHLORIDE 98 MMOL/L (98-107); CREATININE 1.3 MG/DL (0.55-1.30); POTASSIUM 4.1 MMOL/L (3.5-5.1); SODIUM 131 MMOL/L (136-145)
[2018-03-04 08:00] VITALS: BP 117/70
[2018-03-04 08:19] LABS: CREATINE KINASE 26 U/L (26-308)
--- NOTE | 2018-03-04 09:01 | Nephrology Progress Note ---
Assessment/Plan Assessment/Plan A/P 1) LLQ pain- tubo-ovarian abscess - Await OBGYN reccs as patient seen and examined yesterday - Abx per ID 2) DVT prophylaxsis- with lovenox 3) Dehydration- IVFs 4) Hyponatremia- NS and monitor 5) JASMIN- due to contrast Neph, increase IVFs Subjective Date patient seen: Mar 04, 2018 Time patient seen: 08:58 ROS Limited/Unobtainable: No Gastrointestinal/Abdominal: Reports: abdominal pain Allergies: Coded Allergies: No Known Allergies (Unverified , 08/08/14) Subjective Patient LLQ pain improved Objective Last 24 Hour Vital Signs Date Time Temp Pulse Resp B/P (MAP) Pulse Ox O2 Delivery O2 Flow Rate FiO2 03/04/18 04:00 98.4 84 20 128/82 (97) 99 03/04/18 00:00 98.0 72 20 127/79 (95) 99 03/03/18 21:00 Room Air 03/03/18 20:00 98.3 75 20 109/74 (86) 98 03/03/18 16:00 98.9 75 20 124/86 (99) 98 03/03/18 12:19 97.3 78 16 161/71 (101) 100 03/03/18 09:00 Room Air Intake and Output 03/03/18 03/04/18 18:59 06:59 Intake Total 960 ml 900 ml Balance 960 ml 900 ml Intake Oral 960 ml IV Total 900 ml # Voids 3 2 # Bowel Movements 1 Laboratory Tests 03/04/18 06:15: Sodium Level 131L, Potassium Level 4.1, Chloride Level 98, Carbon Dioxide Level 24, Anion Gap 9, Blood Urea Nitrogen 5L, Creatinine 1.3#, Estimat Glomerular Filtration Rate 43.9, Glucose Level 131H, Calcium Level 9.1, Total Bilirubin 0.4 , Aspartate Amino Transf (AST/SGOT) 46H, Alanine Aminotransferase (ALT/SGPT) 67 , Alkaline Phosphatase 127H, Total Creatine Kinase 26, Total Protein 7.9, Albumin 2.5L, Globulin 5.4, Albumin/Globulin Ratio 0.5L, Hepatitis A IgM Antibody [Pending], Hepatitis B Surface Antigen [Pending], Hepatitis B Core IgM Antibody [Pending], Hepatitis C Antibody [Pending] Height (Feet): 5 Height (Inches): 2.00 Weight (Pounds): 113 General Appearance: no apparent distress, alert EENT: normal ENT inspection Neck: normal alignment, supple Cardiovascular: normal rate, regular rhythm Respiratory/Chest: lungs clear, normal breath sounds Abdomen: non tender, soft Edema: no edema noted Arm (L), no edema noted Arm (R), no edema noted Leg (L), no edema noted Leg (R), no edema noted Pedal (L), no edema noted Pedal (R), no edema noted Generalized Abimael Sims MD Mar 04, 2018 09:01
[2018-03-04] MEDS: Thiamine 100mg tab ORAL SCH (09:17)
[2018-03-04] MEDS: Doxycycline Hyclate 100 MG in D5W 110 ML IV SCH ×2 (09:18→21:28)
[2018-03-04 12:00] VITALS: BP 147/83
[2018-03-04 16:00] VITALS: BP 116/69
[2018-03-04] MEDS ORDERED: Zolpidem 5mg tab ORAL PRN (18:45)
--- NOTE | 2018-03-04 19:56 | General Progress Note ---
Assessment/Plan Assessment/Plan Assessment - Alcohol abuse - Likely Edward Parker hepatitis related to tubo-ovarian abscess - Tubo ovarian abscess - Thickening of colon on CT - nonspecific finding, had a negative CT in July Recommendations - Check hepatitis serologies - abx per ID - Thiamine, MVI - watch for withdrawal Subjective Allergies: Coded Allergies: No Known Allergies (Unverified , 08/08/14) Subjective Feels better less abd pain tolerating PO Objective Last 24 Hour Vital Signs Date Time Temp Pulse Resp B/P (MAP) Pulse Ox O2 Delivery O2 Flow Rate FiO2 03/04/18 16:00 98.1 75 19 116/69 (85) 99 03/04/18 12:00 97.9 70 20 147/83 (104) 99 03/04/18 09:00 Room Air 03/04/18 08:00 97.8 71 20 117/70 (86) 99 03/04/18 04:00 98.4 84 20 128/82 (97) 99 03/04/18 00:00 98.0 72 20 127/79 (95) 99 03/03/18 21:00 Room Air 03/03/18 20:00 98.3 75 20 109/74 (86) 98 Intake and Output 03/03/18 03/04/18 19:00 07:00 Intake Total 1035 ml 825 ml Balance 1035 ml 825 ml Intake Oral 960 ml IV Total 75 ml 825 ml # Voids 3 2 # Bowel Movements 1 Laboratory Tests 03/04/18 06:15: Sodium Level 131L, Potassium Level 4.1, Chloride Level 98, Carbon Dioxide Level 24, Anion Gap 9, Blood Urea Nitrogen 5L, Creatinine 1.3#, Estimat Glomerular Filtration Rate 43.9, Glucose Level 131H, Calcium Level 9.1, Total Bilirubin 0.4 , Aspartate Amino Transf (AST/SGOT) 46H, Alanine Aminotransferase (ALT/SGPT) 67 , Alkaline Phosphatase 127H, Total Creatine Kinase 26, Total Protein 7.9, Albumin 2.5L, Globulin 5.4, Albumin/Globulin Ratio 0.5L, Hepatitis A IgM Antibody [Pending], Hepatitis B Surface Antigen [Pending], Hepatitis B Core IgM Antibody [Pending], Hepatitis C Antibody [Pending] Height (Feet): 5 Height (Inches): 2.00 Weight (Pounds): 113 Objective WDWN NCAT supple CTA RRR abd soft ND no edema Kelley Colin MD Mar 04, 2018 19:56
[2018-03-04 20:00] VITALS: BP 101/58
--- NOTE | 2018-03-04 20:41 | Infectious Diseases Prog Note ---
Assessment/Plan Problems: (1) Tubo-ovarian abscess Assessment & Plan: screening for chlamydia and gonorrhea , and syphilis is pending, screening for HIV is negative . continue cefoxitine and doxycycline empirically, recommend FRUIT DRYER eval . will order CA 125 (2) UTI (urinary tract infection) Assessment & Plan: already on cefoxitin pending culture (3) Abdominal pain Assessment & Plan: due to the above , continue pain management (4) Fever Assessment & Plan: due to the above, continue tylenol and wide spectrum antibiotics (5) Elevated LFTs Assessment & Plan: hepatitis panel is pending , monitor LFT closely Subjective Constitutional: Reports: no symptoms HEENT: Reports: no symptoms Respiratory: Reports: no symptoms Breasts: Reports: no symptoms Cardiovascular: Reports: no symptoms Gastrointestinal/Abdominal: Reports: other - LLQ pain Genitourinary: Reports: no symptoms Neurologic: Reports: no symptoms Psychiatric: Reports: no symptoms Skin: Reports: no symptoms Endocrine: Reports: no symptoms Hematologic: Reports: no symptoms Musculoskeletal: Reports: no symptoms Allergies: Coded Allergies: No Known Allergies (Unverified , 08/08/14) Objective Vital Signs Last 24 Hour Vital Signs Date Time Temp Pulse Resp B/P (MAP) Pulse Ox O2 Delivery O2 Flow Rate FiO2 03/04/18 16:00 98.1 75 19 116/69 (85) 99 03/04/18 12:00 97.9 70 20 147/83 (104) 99 03/04/18 09:00 Room Air 03/04/18 08:00 97.8 71 20 117/70 (86) 99 03/04/18 04:00 98.4 84 20 128/82 (97) 99 03/04/18 00:00 98.0 72 20 127/79 (95) 99 03/03/18 21:00 Room Air Height (Feet): 5 Height (Inches): 2.00 Weight (Pounds): 113 General Appearance: WD/WN, no acute distress HEENT: normocephalic, atraumatic, anicteric, mucous membranes moist, PERRL Respiratory/Chest: chest wall non-tender, lungs clear, normal breath sounds, no respiratory distress, no accessory muscle use Cardiovascular: normal peripheral pulses, normal rate, regular rhythm, no gallop/murmur, no JVD Abdomen: normal bowel sounds, no organomegaly, non distended, no mass, no scars , tender Extremities: no cyanosis, no clubbing Skin: no rash, no lesions, no ulcers Neurologic/Psychiatric: alert, oriented x 3, responsive Lymphatic: no neck adenopathy, no groin adenopathy Musculoskeletal: normal muscle bulk, no effusion Microbiology Date/Time Source Procedure Growth Status 03/02/18 19:00 Blood Blood Culture - Preliminary NO GROWTH AFTER 24 HOURS Resulted 03/02/18 18:55 Blood Blood Culture - Preliminary NO GROWTH AFTER 24 HOURS Resulted 03/02/18 12:55 Urine,Clean Catch Urine Culture - Preliminary Mixed Gram Positive Organism Resulted Laboratory Tests Test 03/04/18 06:15 Sodium Level 131 MMOL/L (136-145) L Potassium Level 4.1 MMOL/L (3.5-5.1) Chloride Level 98 MMOL/L (98-107) Carbon Dioxide Level 24 MMOL/L (21-32) Anion Gap 9 mmol/L (5-15) Blood Urea Nitrogen 5 mg/dL (7-18) L Creatinine 1.3 MG/DL (0.55-1.30) # Estimat Glomerular Filtration Rate 43.9 mL/min (>60) Glucose Level 131 MG/DL (74-106) H Calcium Level 9.1 MG/DL (8.5-10.1) Total Bilirubin 0.4 MG/DL (0.2-1.0) Aspartate Amino Transf (AST/SGOT) 46 U/L (15-37) H Alanine Aminotransferase (ALT/SGPT) 67 U/L (12-78) Alkaline Phosphatase 127 U/L (46-116) H Total Creatine Kinase 26 U/L (26-308) Total Protein 7.9 G/DL (6.4-8.2) Albumin 2.5 G/DL (3.4-5.0) L Globulin 5.4 g/dL Albumin/Globulin Ratio 0.5 (1.0-2.7) L Hepatitis A IgM Antibody Pending Hepatitis B Surface Antigen Pending Hepatitis B Core IgM Antibody Pending Hepatitis C Antibody Pending Current Medications Medications (Trade) Dose Ordered Sig/Navid Route PRN Reason Start Time Stop Time Status Last Admin Dose Admin Acetaminophen (Tylenol) 650 mg Q4H PRN ORAL Mild Pain (Pain Scale 1-3) 03/02/18 18:45 04/01/18 18:44 03/04/18 16:04 Cefoxitin Sodium 2 gm/Dextrose 110 ml @ 220 mls/hr Q8HR IVPB 03/04/18 18:00 03/11/18 17:59 03/04/18 18:08 Chlordiazepoxide (Librium) 25 mg Q6H PRN ORAL Agitation 03/02/18 18:45 03/09/18 18:44 Dextrose (Dextrose 50%) 25 ml Q30M PRN IV Hypoglycemia 03/02/18 18:45 04/01/18 18:44 Dextrose (Dextrose 50%) 50 ml Q30M PRN IV Hypoglycemia 03/02/18 18:45 04/01/18 18:44 Doxycycline Hyclate 100 mg/ Dextrose 110 ml @ 110 mls/hr Q12HR IV 03/02/18 21:00 03/09/18 20:59 03/04/18 09:18 Enoxaparin Sodium (Lovenox) 40 mg Q24H SUBQ 03/02/18 20:00 04/01/18 19:59 03/03/18 20:28 Famotidine (Pepcid) 40 mg DAILY ORAL 03/03/18 09:00 04/02/18 08:59 03/04/18 09:18 Folic Acid (Folate) 1 mg DAILY ORAL 03/02/18 20:00 04/01/18 19:59 03/04/18 09:17 Iopamidol (Isovue-300 100ml) 100 ml NOW PRN INJ Radiology Procedure 03/02/18 12:15 Lorazepam (Ativan 2mg/ml 1ml) 0.5 mg Q4H PRN IV For Anxiety 03/02/18 18:45 03/09/18 18:44 03/03/18 21:00 Ondansetron HCl (Zofran) 4 mg Q6H PRN IVP Nausea & Vomiting 03/02/18 18:45 04/01/18 18:44 Potassium Chloride (K-Dur) 40 meq DAILY ORAL 03/03/18 09:00 04/02/18 08:59 03/04/18 09:17 Sodium Chloride 1,000 ml @ 100 mls/hr Q10H IV 03/04/18 09:03 04/03/18 09:02 03/04/18 09:18 Thiamine HCl (Vitamin B1) 100 mg DAILY ORAL 03/02/18 20:00 04/01/18 19:59 03/04/18 09:17 Zolpidem Tartrate (Ambien) 5 mg HSPRN PRN ORAL Insomnia 03/04/18 18:45 03/11/18 18:44 Benita Talamantes M.D. Mar 04, 2018 20:41
[2018-03-04] MEDS: LORazepam Inj 2mg/ml 1ml IV PRN (21:28)
[2018-03-04] MEDS: Enoxaparin 40mg Inj SUBQ SCH (21:29)
[2018-03-05] VITALS: BP 137/65
--- NOTE | 2018-03-05 02:00 | Consultation ---
DATE OF CONSULTATION: 03/04/2018 GYNECOLOGY CONSULTATION CONSULTING PHYSICIAN: Jolie Reyna M.D. HISTORY OF PRESENT ILLNESS: This is a 47-year-old female who was admitted to [facility] through the emergency room due to complaints on persistent left lower quadrant pain, getting worse for several more days. Routine pain mediations and nonsteroidal anti-inflammatory did not give pain relief. The pain started in November of this year and she was admitted to and treated for nine days with antibiotics. At that time, she was told that she had inflammatory mass on the left side. Then she was seen by auto porter at the clinic, and at that time, she had Pap smear and she had tests for STD and other vaginal infections. All these tests came back negative. The patient is a heavy drinker. She has six to seven drinks every day. She denies any nausea or vomiting. The bowel movement is normal and her urination is normal. GYNECOLOGICAL HISTORY: She is 4, para 4, 4 normal vaginal deliveries. Her menstrual periods since age 17, three to four days every month with mild to moderate cramps. Her last menstrual period was years ago. She denies pelvic inflammatory disease. She denies STD. She denies gynecological surgeries. control, she used to have Norplant and now she has an intrauterine device. Mammogram was done this year and was normal. PAST MEDICAL HISTORY: Includes cirrhosis and alcohol dependency. SOCIAL HISTORY: Positive for tobacco and use of alcohol. FAMILY HISTORY: Noncontributory. Denies history of cancer in the family. PHYSICAL EXAMINATION: GENERAL: Revealed a well-developed and well-nourished female, in on acute distress. VITAL SIGNS: Stable. HEENT: Head, normocephalic and atraumatic. SKIN: With multiple tattoos, but no lesions. BREASTS: No masses. Nipples without discharge. ABDOMEN: Soft and nontender. Some mild tenderness over the left lower quadrant. Bowel sounds present. Costovertebral angle is nontender. Rebound tenderness absent. EXTREMITIES: No edema. No erythema. PELVIC: Revealed vulva and vagina, no lesions. Cervix, normal size. No lesions. Her uterus and left adnexa feels together. Adnexa is tender, about 7 cm diameter. I reviewed the lab reports and radiology reports. IMPRESSION: The patient has a tubo-ovarian abscess, and other medical problems of cirrhosis, severe alcohol dependency, abdominal pain, hypokalemia, and hyponatremia. PLAN: Continue treatment with the antibiotics as she responds well. Her WBC went down; on admission, WBC 15,000 and today . WBC of 14.5. I would recommend and continue the same regimen of antibiotics followed by CBC and vital signs. At the present time, she is getting cefepime 1 g once a day and doxycycline 100 mg q.12 h. IV piggyback. The patient's condition discussed with Dr. Scott. Thank you for inviting me to see this interesting patient. Jolie Reyna M.D. DR: PAUL JOB#: [id number] CC:
[2018-03-05 04:00] VITALS: BP 140/73
[2018-03-05] MEDS: cefOXitin Sod 2 GM in D5W 110 ML IVPB SCH ×3 (05:28→22:42)
[2018-03-05 08:00] VITALS: BP 124/80
--- NOTE | 2018-03-05 08:10 | Nephrology Progress Note ---
Assessment/Plan Assessment/Plan A/P 1) LLQ pain- tubo-ovarian abscess - RADIOLOGY PHYSICIAN evaluated patient and recc Abx and observe for now - Abx per ID 2) DVT prophylaxsis- with lovenox 3) Dehydration- IVFs 4) Hyponatremia- NS - labs pending 5) JASMIN- due to contrast Neph, IVFs - am labs pending Subjective Date patient seen: Mar 05, 2018 Time patient seen: 08:07 ROS Limited/Unobtainable: No Allergies: Coded Allergies: No Known Allergies (Unverified , 08/08/14) Subjective Patient LLQ pain resolved Objective Last 24 Hour Vital Signs Date Time Temp Pulse Resp B/P (MAP) Pulse Ox O2 Delivery O2 Flow Rate FiO2 03/05/18 04:00 97.5 69 18 140/73 (95) 99 03/05/18 00:00 97.3 60 18 137/65 (89) 100 03/04/18 21:00 Room Air 03/04/18 20:00 98.4 62 18 101/58 (72) 100 03/04/18 16:00 98.1 75 19 116/69 (85) 99 03/04/18 12:00 97.9 70 20 147/83 (104) 99 03/04/18 09:00 Room Air Intake and Output 03/04/18 03/05/18 19:00 07:00 Intake Total 800 ml 1580 ml Balance 800 ml 1580 ml Intake Oral 800 ml 480 ml IV Total 1100 ml # Voids 3 3 Height (Feet): 5 Height (Inches): 2.00 Weight (Pounds): 113 General Appearance: no apparent distress, alert EENT: normal ENT inspection Neck: normal alignment, supple Cardiovascular: normal rate, regular rhythm Respiratory/Chest: lungs clear, normal breath sounds Abdomen: non tender, soft Edema: no edema noted Arm (L), no edema noted Arm (R), no edema noted Leg (L), no edema noted Leg (R), no edema noted Pedal (L), no edema noted Pedal (R), no edema noted Generalized Abimael Sims MD Mar 05, 2018 08:10
[2018-03-05] MEDS: Doxycycline Hyclate 100 MG in D5W 110 ML IV SCH ×2 (09:03→21:32)
[2018-03-05] MEDS: Thiamine 100mg tab ORAL SCH (09:03)
[2018-03-05] MEDS: LORazepam Inj 2mg/ml 1ml IV PRN (09:04)
[2018-03-05 10:26] LABS: ANION GAP 11 mmol/L (5-15); BLOOD UREA NITROGEN 5 mg/dL (7-18); CALCIUM 9.5 MG/DL (8.5-10.1); CARBON DIOXIDE 24 MMOL/L (21-32); CHLORIDE 98 MMOL/L (98-107); CREATININE 0.7 MG/DL (0.55-1.30); SODIUM 133 MMOL/L (136-145)
[2018-03-05 12:00] VITALS: BP 145/83
[2018-03-05 15:55] VITALS: BP 120/93
--- NOTE | 2018-03-05 15:57 | Infectious Diseases Prog Note ---
Assessment/Plan Problems: (1) Tubo-ovarian abscess Assessment & Plan: screening for chlamydia , syphilis and for HIV is negative . gonorrhea screening is not back yet , continue cefoxitine and doxycycline empirically, follow up with BEARING INSPECTOR , will switch to oral doxycycline and metronidazole upon discharge for 14 days (2) UTI (urinary tract infection) Assessment & Plan: showed mixed gram positive organisms , already on cefoxitin pending culture (3) Abdominal pain Assessment & Plan: due to the above , continue pain management (4) Fever Assessment & Plan: resolved, due to the above, continue tylenol and wide spectrum antibiotics (5) Elevated LFTs Assessment & Plan: hepatitis panel is negative , monitor LFT closely Subjective Constitutional: Reports: no symptoms HEENT: Reports: no symptoms Respiratory: Reports: no symptoms Breasts: Reports: no symptoms Cardiovascular: Reports: no symptoms Gastrointestinal/Abdominal: Reports: no symptoms Genitourinary: Reports: no symptoms Neurologic: Reports: no symptoms Psychiatric: Reports: no symptoms Skin: Reports: no symptoms Endocrine: Reports: no symptoms Hematologic: Reports: no symptoms Musculoskeletal: Reports: no symptoms Allergies: Coded Allergies: No Known Allergies (Unverified , 08/08/14) Objective Vital Signs Last 24 Hour Vital Signs Date Time Temp Pulse Resp B/P (MAP) Pulse Ox O2 Delivery O2 Flow Rate FiO2 03/05/18 12:00 98.9 67 19 145/83 (103) 97 03/05/18 09:00 Room Air 03/05/18 08:00 97.7 66 20 124/80 (95) 99 03/05/18 04:00 97.5 69 18 140/73 (95) 99 03/05/18 00:00 97.3 60 18 137/65 (89) 100 03/04/18 21:00 Room Air 03/04/18 20:00 98.4 62 18 101/58 (72) 100 03/04/18 16:00 98.1 75 19 116/69 (85) 99 Height (Feet): 5 Height (Inches): 2.00 Weight (Pounds): 113 General Appearance: WD/WN, no acute distress HEENT: normocephalic, atraumatic, anicteric, mucous membranes moist, PERRL Respiratory/Chest: chest wall non-tender, lungs clear, normal breath sounds, no respiratory distress, no accessory muscle use Cardiovascular: normal peripheral pulses, normal rate, regular rhythm, no gallop/murmur, no JVD Abdomen: normal bowel sounds, no organomegaly, non distended, no mass, no scars , tender Extremities: no cyanosis, no clubbing Skin: no rash, no lesions, no ulcers Neurologic/Psychiatric: alert, oriented x 3, responsive Lymphatic: no neck adenopathy, no groin adenopathy Microbiology Date/Time Source Procedure Growth Status 03/02/18 19:00 Blood Blood Culture - Preliminary NO GROWTH AFTER 48 HOURS Resulted 03/02/18 18:55 Blood Blood Culture - Preliminary NO GROWTH AFTER 48 HOURS Resulted Laboratory Tests Test 03/05/18 09:30 White Blood Count 9.5 K/UL (4.8-10.8) Red Blood Count 3.99 M/UL (4.20-5.40) L Hemoglobin 13.1 G/DL (12.0-16.0) Hematocrit 38.6 % (37.0-47.0) Mean Corpuscular Volume 97 FL (80-99) Mean Corpuscular Hemoglobin 32.7 PG (27.0-31.0) H Mean Corpuscular Hemoglobin Concent 33.9 G/DL (32.0-36.0) Red Cell Distribution Width 10.8 % (11.6-14.8) L Platelet Count 337 K/UL (150-450) Mean Platelet Volume 5.5 FL (6.5-10.1) L Neutrophils (%) (Auto) 65.1 % (45.0-75.0) Lymphocytes (%) (Auto) 17.6 % (20.0-45.0) L Monocytes (%) (Auto) 14.2 % (1.0-10.0) H Eosinophils (%) (Auto) 1.2 % (0.0-3.0) Basophils (%) (Auto) 1.9 % (0.0-2.0) Sodium Level 133 MMOL/L (136-145) L Potassium Level 4.0 MMOL/L (3.5-5.1) Chloride Level 98 MMOL/L (98-107) Carbon Dioxide Level 24 MMOL/L (21-32) Anion Gap 11 mmol/L (5-15) Blood Urea Nitrogen 5 mg/dL (7-18) L Creatinine 0.7 MG/DL (0.55-1.30) Estimat Glomerular Filtration Rate > 60 mL/min (>60) Glucose Level 101 MG/DL (74-106) Calcium Level 9.5 MG/DL (8.5-10.1) Current Medications Medications (Trade) Dose Ordered Sig/Navid Route PRN Reason Start Time Stop Time Status Last Admin Dose Admin Acetaminophen (Tylenol) 650 mg Q4H PRN ORAL Mild Pain (Pain Scale 1-3) 03/02/18 18:45 04/01/18 18:44 03/05/18 05:28 Cefoxitin Sodium 2 gm/Dextrose 110 ml @ 220 mls/hr Q8HR IVPB 03/04/18 18:00 03/11/18 17:59 03/05/18 13:23 Chlordiazepoxide (Librium) 25 mg Q6H PRN ORAL Agitation 03/02/18 18:45 03/09/18 18:44 Dextrose (Dextrose 50%) 25 ml Q30M PRN IV Hypoglycemia 03/02/18 18:45 04/01/18 18:44 Dextrose (Dextrose 50%) 50 ml Q30M PRN IV Hypoglycemia 03/02/18 18:45 04/01/18 18:44 Doxycycline Hyclate 100 mg/ Dextrose 110 ml @ 110 mls/hr Q12HR IV 03/02/18 21:00 03/09/18 20:59 03/05/18 09:03 Enoxaparin Sodium (Lovenox) 40 mg Q24H SUBQ 03/02/18 20:00 04/01/18 19:59 03/04/18 21:29 Famotidine (Pepcid) 40 mg DAILY ORAL 03/03/18 09:00 04/02/18 08:59 03/05/18 09:03 Folic Acid (Folate) 1 mg DAILY ORAL 03/02/18 20:00 04/01/18 19:59 03/05/18 09:03 Iopamidol (Isovue-300 100ml) 100 ml NOW PRN INJ Radiology Procedure 03/02/18 12:15 Lorazepam (Ativan 2mg/ml 1ml) 0.5 mg Q4H PRN IV For Anxiety 03/02/18 18:45 03/09/18 18:44 03/05/18 09:04 Ondansetron HCl (Zofran) 4 mg Q6H PRN IVP Nausea & Vomiting 03/02/18 18:45 04/01/18 18:44 Potassium Chloride (K-Dur) 40 meq DAILY ORAL 03/03/18 09:00 04/02/18 08:59 03/05/18 09:03 Sodium Chloride 1,000 ml @ 100 mls/hr Q10H IV 03/04/18 09:03 04/03/18 09:02 03/05/18 15:23 Thiamine HCl (Vitamin B1) 100 mg DAILY ORAL 03/02/18 20:00 04/01/18 19:59 03/05/18 09:03 Zolpidem Tartrate (Ambien) 5 mg HSPRN PRN ORAL Insomnia 03/04/18 18:45 03/11/18 18:44 Benita Talamantes M.D. Mar 05, 2018 15:57
--- NOTE | 2018-03-05 18:22 | General Progress Note ---
Assessment/Plan Assessment/Plan Assessment - Alcohol abuse - Likely Edward Parker hepatitis related to tubo-ovarian abscess - Tubo ovarian abscess - Thickening of colon on CT - nonspecific finding, had a negative colonoscopy in July Recommendations - Check hepatitis serologies - abx per ID - Thiamine, MVI - STOREHOUSE CLERK f/u - will return Mon to see pt Subjective Allergies: Coded Allergies: No Known Allergies (Unverified , 08/08/14) Subjective Feels better less abd pain tolerating PO (+) BM - formed Objective Last 24 Hour Vital Signs Date Time Temp Pulse Resp B/P (MAP) Pulse Ox O2 Delivery O2 Flow Rate FiO2 03/05/18 15:55 97.9 74 20 120/93 (102) 99 03/05/18 12:00 98.9 67 19 145/83 (103) 97 03/05/18 09:00 Room Air 03/05/18 08:00 97.7 66 20 124/80 (95) 99 03/05/18 04:00 97.5 69 18 140/73 (95) 99 03/05/18 00:00 97.3 60 18 137/65 (89) 100 03/04/18 21:00 Room Air 03/04/18 20:00 98.4 62 18 101/58 (72) 100 Intake and Output 03/04/18 03/05/18 18:59 06:59 Intake Total 800 ml 1580 ml Balance 800 ml 1580 ml Intake Oral 800 ml 480 ml IV Total 1100 ml # Voids 3 3 Laboratory Tests 03/05/18 09:30: White Blood Count 9.5, Red Blood Count 3.99L, Hemoglobin 13.1, Hematocrit 38.6, Mean Corpuscular Volume 97, Mean Corpuscular Hemoglobin 32.7H, Mean Corpuscular Hemoglobin Concent 33.9, Red Cell Distribution Width 10.8L, Platelet Count 337, Mean Platelet Volume 5.5L, Neutrophils (%) (Auto) 65.1, Lymphocytes (%) (Auto) 17.6L, Monocytes (%) (Auto) 14.2H, Eosinophils (%) (Auto) 1.2, Basophils (%) ( Auto) 1.9, Sodium Level 133L, Potassium Level 4.0, Chloride Level 98, Carbon Dioxide Level 24, Anion Gap 11, Blood Urea Nitrogen 5L, Creatinine 0.7, Estimat Glomerular Filtration Rate > 60, Glucose Level 101, Calcium Level 9.5 Height (Feet): 5 Height (Inches): 2.00 Weight (Pounds): 113 Objective WDWN NCAT supple CTA RRR abd soft ND no edema Kelley Colin MD Mar 05, 2018 18:22
[2018-03-05 20:00] VITALS: BP_SYST 114; BP_SYST 145; BP_DIAS 67; BP_DIAS 87
[2018-03-05] MEDS: Enoxaparin 40mg Inj SUBQ SCH (21:31)
[2018-03-05] MEDS ORDERED: Tubing IV Secondary IV ONE (22:18)
[2018-03-05] MEDS: traMADol 50mg tab ORAL PRN (22:39)
[2018-03-06] VITALS: BP 114/67
[2018-03-06 04:00] VITALS: BP 108/71
[2018-03-06 06:35] LABS: BASOPHILS % (AUTO) 3.1 % (0.0-2.0); EOSINOPHILS % (AUTO) 1.2 % (0.0-3.0); HEMATOCRIT 39.8 % (37.0-47.0); HEMOGLOBIN 13.4 G/DL (12.0-16.0); LYMPHOCYTES % (AUTO) 17.5 % (20.0-45.0); MEAN CORPUSCULAR VOLUME 99 FL (80-99); MONOCYTES % (AUTO) 10.9 % (1.0-10.0); NEUTROPHILS % (AUTO) 67.3 % (45.0-75.0); PLATELET COUNT 362 K/UL (150-450); RED BLOOD COUNT 4.04 M/UL (4.20-5.40); RED CELL DISTRIBUTION WIDTH 10.9 % (11.6-14.8); WHITE BLOOD COUNT 9.5 K/UL (4.8-10.8)
[2018-03-06 06:38] LABS: BASOPHILS % (AUTO) 1.4 % (0.0-2.0); EOSINOPHILS % (AUTO) 1.7 % (0.0-3.0); HEMATOCRIT 41.1 % (37.0-47.0); HEMOGLOBIN 13.9 G/DL (12.0-16.0); MEAN CORPUSCULAR VOLUME 96 FL (80-99); MONOCYTES % (AUTO) 13.3 % (1.0-10.0); NEUTROPHILS % (AUTO) 55.6 % (45.0-75.0); PLATELET COUNT 440 K/UL (150-450); RED BLOOD COUNT 4.27 M/UL (4.20-5.40); RED CELL DISTRIBUTION WIDTH 10.7 % (11.6-14.8); WHITE BLOOD COUNT 8.3 K/UL (4.8-10.8)
[2018-03-06] MEDS: cefOXitin Sod 2 GM in D5W 110 ML IVPB SCH (06:48)
[2018-03-06] MEDS: traMADol 50mg tab ORAL PRN (06:49)
[2018-03-06 06:53] LABS: ANION GAP 8 mmol/L (5-15); BLOOD UREA NITROGEN 6 mg/dL (7-18); CALCIUM 9.4 MG/DL (8.5-10.1); CARBON DIOXIDE 27 MMOL/L (21-32); CHLORIDE 100 MMOL/L (98-107); CREATININE 0.6 MG/DL (0.55-1.30); POTASSIUM 4.3 MMOL/L (3.5-5.1); SODIUM 135 MMOL/L (136-145)
[2018-03-06 08:00] VITALS: BP 102/62
[2018-03-06] MEDS: Doxycycline Hyclate 100 MG in D5W 110 ML IV SCH (08:21)
[2018-03-06] MEDS: Thiamine 100mg tab ORAL SCH (08:22)
--- NOTE | 2018-03-06 10:00 | Nephrology Progress Note ---
Assessment/Plan Assessment/Plan A/P 1) LLQ pain- tubo-ovarian abscess - CAR SEAT UPHOLSTERER evaluated patient and recc Abx - oral doxycycline and metronidazole upon discharge for 14 days 2) DVT prophylaxsis- with lovenox 3) Dehydration- IVFs 4) Hyponatremia- resolved 5) JASMIN- due to contrast Neph, IVFs - resolved 6) Mild elevated LFTs- Edward Parker hepatitis related to tubo-ovarian abscess - f/u GI Patient to be discharged today with follow up Subjective Date patient seen: Mar 06, 2018 Time patient seen: 09:58 ROS Limited/Unobtainable: No Allergies: Coded Allergies: No Known Allergies (Unverified , 08/08/14) Subjective Patient LLQ pain resolved and patient feeling better Objective Last 24 Hour Vital Signs Date Time Temp Pulse Resp B/P (MAP) Pulse Ox O2 Delivery O2 Flow Rate FiO2 03/06/18 08:00 97.0 71 18 102/62 (75) 100 03/06/18 04:00 97.7 64 18 108/71 (83) 100 03/06/18 00:00 97.1 75 18 114/67 (83) 99 03/05/18 21:00 Room Air 03/05/18 20:00 97.8 67 18 145/87 (106) 100 03/05/18 15:55 97.9 74 20 120/93 (102) 99 03/05/18 12:00 98.9 67 19 145/83 (103) 97 Intake and Output 03/05/18 03/06/18 19:00 07:00 Intake Total 2960 ml 200 ml Balance 2960 ml 200 ml Intake Oral 1440 ml 200 ml IV Total 1520 ml # Voids 3 4 Laboratory Tests 03/06/18 06:15: White Blood Count 8.3, Red Blood Count 4.27, Hemoglobin 13.9, Hematocrit 41.1, Mean Corpuscular Volume 96, Mean Corpuscular Hemoglobin 32.5H, Mean Corpuscular Hemoglobin Concent 33.7, Red Cell Distribution Width 10.7L, Platelet Count 440, Mean Platelet Volume 5.4L, Neutrophils (%) (Auto) 55.6, Lymphocytes (%) (Auto) 28.0, Monocytes (%) (Auto) 13.3H, Eosinophils (%) (Auto) 1.7, Basophils (%) ( Auto) 1.4, Sodium Level 135L, Potassium Level 4.3, Chloride Level 100, Carbon Dioxide Level 27, Anion Gap 8, Blood Urea Nitrogen 6L, Creatinine 0.6, Estimat Glomerular Filtration Rate > 60, Glucose Level 87, Calcium Level 9.4 Height (Feet): 5 Height (Inches): 2.00 Weight (Pounds): 113 General Appearance: no apparent distress, alert EENT: normal ENT inspection Neck: normal alignment, supple Cardiovascular: regular rhythm Respiratory/Chest: lungs clear, normal breath sounds Abdomen: non tender, soft Edema: no edema noted Arm (L), no edema noted Arm (R), no edema noted Leg (L), no edema noted Leg (R), no edema noted Pedal (L), no edema noted Pedal (R), no edema noted Generalized Abimael Sims MD Mar 06, 2018 10:00
--- NOTE | 2018-03-06 10:01 | Discharge Instructions ---
Discharge Instructions Discharge Instructions Services at Discharge: day care Resume Normal Activity?: Yes Follow Up Orders Complete 14 days of oral antibiotics F/U ASSOCIATE MARKETING MANAGER/ID and GI 1 week post discharge For Congestive Heart Failure Reminder Report to your physician any weight gain of 5 pounds or more in one week. Abimael Sims MD Mar 06, 2018 10:01
[2018-03-06] MEDS ORDERED: METRONIDAZOLE500 MG ORAL (10:27)
[2018-03-06] MEDS ORDERED: DOXYCYCLINE MO100 MG ORAL (10:28)
[2018-03-06 12:08] VITALS: BP 105/70
--- NOTE | 2018-03-09 09:28 | Discharge Summary ---
Discharge Summary Discharge Summary _ DATE OF ADMISSION: 03/02/2018 DATE OF DISCHARGE: 03/06/2018 REASON FOR ADMISSION: 47 years old female with past medical history of alcohol dependency, cirrhosis, ovarian mass, presented to emergency room for evaluation of left lower quadrant abdominal pain. Pain started in November of this year. Patient was seen at [facility] and was told that she has a mass. Patient returned for further evaluation and care. Patient admitted to drinking about 5-7 drinks a day. Patient reported tremors while she was not drinking. No seizure, no visual hallucinations. No nausea ,vomiting or diarrhea . Abdominal pain reported to be chronic in left lower quadrant, but significantly worsened over the past week. Upon evaluation vital signs were stable. Laboratory workup revealed potassium 3.1, sodium 126. AST 94, ALT 107 . Ammonia level less than 10 . Albumin 3.0 . Leukocytosis with WBC 16.6, hemoglobin 14.4, stable platelet count. Urine toxicology screen was negative. Serum alcohol level was less than 3 CT of the abdomen and pelvis revealed 6.8 x 5 cm complex left adnexal mass , presumptively ovarian in origin given the evidence of surrounding inflammatory changes. Findings were suspicious for tubo-ovarian abscess. Chest x-ray revealed no acute cardiopulmonary pathology Patient admitted with diagnoses of hyponatremia, likely due to or poor oral intake secondary to heavy alcohol consumption; hypokalemia most likely secondary to poor oral intake and heavy alcohol consumption; abdominal pain; tubo-ovarian abscess; alcohol dependency. CONSULTANTS: ID specialist Dr. Talamantes GI specialist Dr. Colin OB- TECHNICAL SERVICES MANAGER Dr. Reyna HOSPITAL COURSE: Patient admitted and started on IV hydration to correct her electrolyte abnormalities and empiric antibiotics as per infectious disease specialist recommendations. Pain management was addressed. Patient started on Librium to avoid any withdrawal symptoms. Patient was provided with thiamine , folate and MVI to avoid Wernicke- Korsakoff syndrome Urine culture revealed mixed gram-positive organisms. Blood culture were negative. Screening for chlamydia , syphilis, and for HIV were negative. Gonorrhea screening still pending. Patient was on cefoxitin and doxycycline while in the hospital. wer Upon discharge patient was switched to oral doxycycline and metronidazole to complete the course for 14 days. GI specialist closely followed. Per GI specialist , patient likely had Stevie Vishal Keith hepatitis, related to tubo-ovarian abscess. Patient also noted to have a thickening of the colon on CT scan , which was nonspecific finding, given the negative colonoscopy in July. Hepatitis panel was negative. Patient was continued on vitamin supplementation. Elevated LFT were due to multiple etiologies, including to alcohol use, probable Stevie Vishal Keith hepatitis and history of cirrhosis) LFT were trending down. AST down to 46 ,ALT down to 67. On 02/06 noted increase in creatinine from 0.6 to 1.3 , likely due to intravenous contrast , given for the CT scan. Patient was continued on IV fluids with close monitoring of renal parameters and electrolytes. Further nephrotoxins avoided. Electrolytes corrected as needed. Prior to discharge sodium 135, potassium 4.3. BUN 6 and creatinine 0.6 HELPDESK ANALYST specialist seen and evaluated the patient. Recommended to complete antibiotic as per ID recommendations. CA-125 within normal limits. Patient to follow-up with HELPDESK ANALYST as outpatient to check for resolution of tubo- ovarian abscess. GI prophylaxis provided. Pain resolved. No leukocytosis, no fever. Stable electrolytes and renal parameters. Patient was stable for discharge home to complete 14 days of antibiotic course FINAL DIAGNOSES: Tubo-ovarian abscess Likely Stevie Vishal Keith hepatitis related to tubo-ovarian abscess Alcohol abuse Alcohol dependency Elevated LFT-trending down Dehydration, likely secondary to heavy alcohol consumption Acute kidney injury likely due to contrast nephrology -resolved Hyponatremia -resolved Hypokalemia -resolved DISCHARGE MEDICATIONS: See Medication Reconciliation list. DISCHARGE INSTRUCTIONS: Patient was discharged home with home health services. Follow up with primary care provider in one week. I have been assigned to dictate discharge summary for this account. I was not involved in the patient's management. Marlene Merritt NP Mar 09, 2018 09:28
== END 2018-03-06 13:50 | disposition home or self-care (01) | DRG 531 ==
LOC: EMR 13:20 → 4E 16:43 → EDBEDREQ 16:49 → 4E 03-06 04:16
DX: N70.93 Salpingitis and oophoritis, unspecified (principal); K75.89 Other specified inflammatory liver diseases; E87.1 Hypo-osmolality and hyponatremia; D64.9 Anemia, unspecified; F10.20 Alcohol dependence, uncomplicated; N39.0 Urinary tract infection, site not specified; F17.200 Nicotine dependence, unspecified, uncomplicated; E87.6 Hypokalemia
CPT/HCPCS: 36415; 71045; 74177; 80048; 80053; 80307; 80329; 81003; 82140; 82550; 82962; 83690; 83735; 84100; 85025; 85610; 85730; 86304; 86592; 86703; 86705; 86709; 86803; 87040; 87086; 87340; 87491; 93005; 96365; 96368; 96375; 99285; J2765; J3490; J8499